=== PATIENT | female | born 1935 | race Caucasian/White ===

== ENCOUNTER 2016-11-20 05:30 | Inpatient (IN) ==
[2016-11-20] MEDS ORDERED: VANCOMYCIN INJ 1,000 MG in SODIUM CHLORIDE 0.9% 250 ML IV ONE (06:00)
--- NOTE | 2016-11-20 07:17 | History and Physical Update ---
History and Physical Update - History and Physical H&P was reviewed, the patient examined and there: are no changes in the patients condition since last H&P was completed.
[2016-11-20] MEDS ORDERED: ceFAZolin 1,000 MG VIAL ONE (07:18)
[2016-11-20] MEDS ORDERED: VANCOMYCIN 1,000 MG VIAL ONE (07:18)
[2016-11-20] MEDS ORDERED: SODIUM CHLORIDE 0.9% 100 ML IV ONE (07:18)
[2016-11-20] MEDS: LACTATED RINGERS 1,000 ML IV SCH ×2 (07:30→16:25)
[2016-11-20] MEDS ORDERED: NALOXONE 0.4 MG/ML VIAL IV PRN (09:18)
[2016-11-20] MEDS ORDERED: HYDROmorphone 2 MG/1 ML VIAL IV PRN (09:18)
[2016-11-20] MEDS ORDERED: TEMAZEPAM 7.5 MG CAPSULE PO PRN (09:18)
[2016-11-20] MEDS ORDERED: PROMETHAZINE 25 MG/1 ML VIAL IM PRN (09:18)
[2016-11-20] MEDS ORDERED: MAGNESIUM HYDROXIDE SUSP 30 ML UDCUP PO PRN (09:18)
[2016-11-20] MEDS ORDERED: ONDANSETRON 4 MG/2 ML VIAL IV PRN (09:18)
[2016-11-20] MEDS ORDERED: diphenhydrAMINE CAP 25 MG CAPSULE PO PRN (09:18)
[2016-11-20] MEDS ORDERED: BISACODYL 10 MG SUPP RECTAL PRN (09:18)
[2016-11-20] MEDS ORDERED: LACTULOSE 20 GM/30 ML UDCUP PO PRN (09:18)
[2016-11-20] MEDS ORDERED: ROPIVACAINE 0.5% 30 ML VIAL ONE (09:35)
[2016-11-20] MEDS ORDERED: TRANEXAMIC ACID 1,000 MG/10 ML VIAL IV ONE (10:58)
--- NOTE | 2016-11-20 12:00 | Anesthesia Post-Op ---
Anesthesia Post OP - Post Ansesthetic Evaluation Patient seen in post op: Yes Resp: within normal limits CV: within normal limits Mental: within normal limits Temp: within normal limits [id number]: within normal limits Nausea and Vomiting: within normal limits Pain: within normal limits
[2016-11-20] MEDS ORDERED: LABETALOL 20 MG/4 ML SYRINGE IV ONE (12:13)
[2016-11-20] MEDS ORDERED: HYDROmorphone 2 MG/1 ML VIAL ONE (12:13)
[2016-11-20] MEDS ORDERED: GLYCOPYRROLATE 0.4 MG/2 ML VIAL ONE (12:14)
[2016-11-20] MEDS ORDERED: MIDAZOLAM 2 MG/2 ML VIAL ONE (12:14)
[2016-11-20] MEDS ORDERED: fentaNYL 100 MCG/2 ML VIAL ONE (12:14)
[2016-11-20] MEDS ORDERED: NEOSTIGMINE 10 MG/10 ML VIAL ONE (12:14)
[2016-11-20] MEDS ORDERED: KETOROLAC 30 MG/1 ML VIAL ONE (12:14)
[2016-11-20] MEDS ORDERED: ROCURONIUM 100 MG/10 ML VIAL IV ONE (12:15)
--- NOTE | 2016-11-20 12:36 | XRay Report ---
XR knee 2V RT Indication: Joint replacement (right knee) Comparison: Right knee x-ray dated December 15, 2014 Technique: Frontal and lateral views of the right knee. Findings: Status post total right knee arthroplasty. No evidence of immediate hardware failure. Superficial skin spencer and surgical drain/s overlie the knee. Subcutaneous and joint space air noted which is likely postoperative. IMPRESSION: Status post total right knee arthroplasty. PROCEDURE INTERPRETED AT [facility] DEPARTMENT OF RADIOLOGY Final Report Signed by: Dr Toni Guevara
[2016-11-20 15:02] LABS: Basophils % 0.2 % (0.0-0.8); Eosinophils % 0.3 % (0.00-10.9); Hematocrit 38.2 VOL% (35.7-47.0); Hemoglobin 12.5 GM/DL (12.0-16.0); Immature Granulocytes % 0.4 %; Immature Granulocytes Absolute 0.05 #; Lymphocytes # 0.9 10*3/uL (1.4-4.0); Lymphocytes % 7.6 % (21.3-54.2); Mean Corpuscular HGB Conc 32.7 GM/DL (32-36); Mean Corpuscular Hemoglobin 30 PG (27-34); Mean Corpuscular Volume 92.3 FL (87-102); Mean Platelet Volume 10.7 FL (9.6-12.0); Monocytes # 0.7 10*3/uL (0.11-0.8); Monocytes % 5.8 % (1.7-12.7); Neutrophils # 10.2 10*3/uL (1.4-7.4); Neutrophils % 85.7 % (38.7-73.9); Platelet Count 195 T/CUMM (130-400); Red Blood Count 4.14 MC/CUMM (3.8-5.5); Red Cell Distribution Width 13.2 % (9.3-17.3); White Blood Count 11.9 T/CUMM (4-12)
[2016-11-20 15:15] LABS: Calcium 8.2 MG/DL (8.5-10.1); Potassium 3.9 MMOL/L (3.5-5.1)
--- NOTE | 2016-11-20 15:58 | Orthopedic Progress Note ---
Orthopedics - Subjective Interval history: Comfortable neurovascular intact good pulse discussed up in a.m. Exam - Constitutional Vitals: Period Temp Pulse Resp BP Sys/Segura Pulse Ox Last 24 Hr 97.7 F-98.1 F 59-79 16-20 114-147/58-86 95-100 Results - Labs CBC & BMP: 11/20/16 14:21 11/20/16 14:21
[2016-11-20] MEDS: HYDROmorphone PCA 30 MG/30 ML SYRINGE IV SCH (16:23)
--- NOTE | 2016-11-20 17:51 | Operative Note ---
DATE: 11/20/2016 PREOPERATIVE DIAGNOSIS: OSTEOARTHRITIS, RIGHT KNEE. POSTOPERATIVE DIAGNOSIS: OSTEOARTHRITIS, RIGHT KNEE. OPERATIVE PROCEDURE: Right total knee ([place]). SURGEON: Akbar Mak Jr., MD. ANESTHESIA: General. INDICATION: A 80-year-old white female with severe osteoarthritis to her right knee. She has maximi zed conservative treatment through the year including previous arthroscopy and injection. She presen ts today for elective right total knee. OPERATIVE PROCEDURE: The patient was taken to the operating room and under general anesthetic, posit ioned in the supine position. The right leg was positioned, prepped and draped in the usual sterile manner. The limb was elevated, exsanguinated, and the tourniquet inflated to 300 mmHg. She received Vancomycin and Ancef preoperatively. A midline incision was made over the anterior aspect of the ri ght knee. Sharp dissection was carried down through skin and subcutaneous tissue. A median parapate llar arthrotomy performed with the knee revealing extensive tricompartmental degenerative changes. I ntramedullary alignment guides were used to make the appropriate cuts about the distal femur and prox imal tibia. The femur was sized to a 5, the tibia also to a 5. A 6 mm fixed bearing spacer selected . The patella was resurfaced with a 35 button. After removal of the trial components, all three com ponents were cemented into place. After the cement hardened, the wound was irrigated and closed over two 1/8-inch Hemovac drains in a standard fashion using #1 Vicryl for the arthrotomy, 2-0 Vicryl for the subcutaneous layer, and spencer for skin. Tourniquet was deflated during wound closure at 42 mi nutes and she was transported to recovery room in stable condition. CC:
[2016-11-20] MEDS: FONDAPARINUX 2.5 MG/0.5 ML SYRINGE SUBCUT SCH (20:34)
[2016-11-20] MEDS: DOCUSATE SODIUM 100 MG CAPSULE PO SCH (20:34)
[2016-11-21 06:51] LABS: Basophils % 0.1 % (0.0-0.8); Hematocrit 33.5 VOL% (35.7-47.0); Hemoglobin 11.4 GM/DL (12.0-16.0); Immature Granulocytes % 0.4 %; Immature Granulocytes Absolute 0.04 #; Lymphocytes # 0.8 10*3/uL (1.4-4.0); Lymphocytes % 7.8 % (21.3-54.2); Mean Corpuscular Hemoglobin 31 PG (27-34); Mean Corpuscular Volume 89.6 FL (87-102); Monocytes # 1.2 10*3/uL (0.11-0.8); Monocytes % 12.1 % (1.7-12.7); Neutrophils # 7.9 10*3/uL (1.4-7.4); Neutrophils % 79.6 % (38.7-73.9); Platelet Count 161 T/CUMM (130-400); Red Blood Count 3.74 MC/CUMM (3.8-5.5); Red Cell Distribution Width 13.2 % (9.3-17.3)
[2016-11-21 07:28] LABS: Calcium 8.2 MG/DL (8.5-10.1); Osmolality,Calculated 280.3 MOS/KG (273-304); Potassium 3.7 MMOL/L (3.5-5.1)
--- NOTE | 2016-11-21 07:35 | Orthopedic Progress Note ---
Orthopedics - Subjective Interval history: Hemoglobin 11 neurovascular intact drain is removed ready to start PT Exam - Constitutional Vitals: Period Temp Pulse Resp BP Sys/Segura Pulse Ox Last 24 Hr 96.6 F-99.3 F 59-98 16-20 114-147/54-86 94-100 Results - Labs CBC & BMP: 11/21/16 06:12 11/21/16 06:12
--- NOTE | 2016-11-21 08:30 | Orthopedic Progress Note ---
Orthopedics - Subjective Interval history: Comfortable neurovascular intact drain removed ready for PT. Exam - Constitutional Vitals: Period Temp Pulse Resp BP Sys/Segura Pulse Ox Last 24 Hr 96.6 F-99.3 F 59-98 16-20 114-147/54-86 94-100 Results - Labs CBC & BMP: 11/21/16 06:12 11/21/16 06:12
[2016-11-21] MEDS: DOCUSATE SODIUM 100 MG CAPSULE PO SCH ×2 (08:31→20:03)
--- NOTE | 2016-11-21 10:44 | Pulmonology Progress Note ---
Pulmonary - PN: Subj Interval history: This is a 80-year-old white female who is postop right total knee replacement. She was seen along with her . So far everything has gone well. Her main problems have been osteoarthritis, osteopenia for which she takes Fosamax, chronic low back pain secondary to multilevel degenerative disc disease and scoliosis. She also has decreased hearing acuity H&H is stable 11.4/33.5. Physical exam. Vital signs. See below Psychiatric. Oriented 3 Neurologic. Cranial nerves are intact with decreased hearing acuity bilaterally. Patient moves all 4 extremities. Face. Symmetrical. No edema of the lips or tongue Neck. Symmetrical. Kyphotic. No meningismus. Chest. Breath sounds are clear. No wheezes. No rales. Heart. Regular. No gallop Abdomen. Positive bowel sounds. Nontender. Extremities. No evidence of deep venous thrombophlebitis. As per orthopedics The remainder of the physical exam is negative. Plan. 1. Continue home medicines 2. Continue present regimen Exam (Progress Note) - Constitutional Vitals: Period Temp Pulse Resp BP Sys/Segura Pulse Ox Last 24 Hr 96.6 F-99.3 F 59-98 16-20 114-147/54-86 94-100 Results - Labs CBC & BMP: 11/21/16 06:12 11/21/16 06:12
--- NOTE | 2016-11-21 12:26 | Pathology Report from [facility] ---
[facility] ACCESSION # : [id number] PATIENT NAME : Abiodun Franklin ORDERING DR : KALPESH SHAW JR, MD CLINICAL HX: Right knee osteoarthritis POST-OP DX: Same SPECIMEN INFO: Right knee bone and tissue GROSS DESCRIPTION: The specimen is received in formalin labeled with the patients name and consists of multiple fragments of bone, cartilage and some soft tissue measuring in aggregate 11.5 x 11.1 cm. The articular surfaces are focally degenerative with areas of some subchondral eburnation present measuring up to 3.0 cm with areas of osteophyte formation noted. Donation Specialist tissue submitted in one cassette. DIAGNOSIS FOR ABIODUN FRANKLIN: RIGHT KNEE BONE & TISSUE, TOTAL REPLACEMENT: Osteoarthritis. COLLECTED DATE: 11/20/2016 [facility] REPORT DATE: 11/21/2016 ELECTRONICALLY SIGNED BY: Nathan Carvajal M.D. 11/21/2016 - 9:50:46 [facility]
[2016-11-21] MEDS: HYDROmorphone PCA 30 MG/30 ML SYRINGE IV SCH (12:57)
[2016-11-21] MEDS: FONDAPARINUX 2.5 MG/0.5 ML SYRINGE SUBCUT SCH (20:03)
[2016-11-21] MEDS: LACTATED RINGERS 1,000 ML IV SCH (22:47)
[2016-11-22 05:41] LABS: Basophils % 0.2 % (0.0-0.8); Eosinophils % 0.1 % (0.00-10.9); Hematocrit 32.3 VOL% (35.7-47.0); Immature Granulocytes % 0.5 %; Immature Granulocytes Absolute 0.05 #; Lymphocytes # 0.9 10*3/uL (1.4-4.0); Lymphocytes % 8.5 % (21.3-54.2); Mean Corpuscular HGB Conc 34.1 GM/DL (32-36); Mean Corpuscular Hemoglobin 30 PG (27-34); Mean Platelet Volume 10.9 FL (9.6-12.0); Monocytes # 1.4 10*3/uL (0.11-0.8); Monocytes % 13.1 % (1.7-12.7); Neutrophils # 8.2 10*3/uL (1.4-7.4); Neutrophils % 77.6 % (38.7-73.9); Platelet Count 147 T/CUMM (130-400); Red Blood Count 3.63 MC/CUMM (3.8-5.5); Red Cell Distribution Width 12.8 % (9.3-17.3); White Blood Count 10.6 T/CUMM (4-12)
[2016-11-22 06:18] LABS: Band Neutrophils 1 % (0-10); Hypochromasia 1+; Lymphocytes 10 % (20-55); Platelet Estimate Decreased; Polychromasia Slight; Segmented Neutrophils 82 % (50-85); Total Cells Counted 100
[2016-11-22] MEDS: DOCUSATE SODIUM 100 MG CAPSULE PO SCH ×2 (09:39→20:43)
--- NOTE | 2016-11-22 10:02 | Orthopedic Progress Note ---
Orthopedics - Subjective Interval history: Comfortable H&H stable up in chair. Discussed continue with rehab per total knee protocol likely to swing bed or rehab tomorrow Exam - Constitutional Vitals: Period Temp Pulse Resp BP Sys/Sgeura Pulse Ox Last 24 Hr 98.0 F-993 F 81-105 18-20 132-169/55-74 93-99 Results - Labs CBC & BMP: 11/22/16 05:09 11/21/16 06:12
--- NOTE | 2016-11-22 10:05 | Discharge Summary ---
Hospital Course - Hospital Course Hospital Course: Admitted for elective right total knee uncomplicated course discharged to rehab/ swing bed Diagnosis - Discharge Diagnosis (1) Osteoarthritis of right knee Status: Acute Discharge Plan - Discharge Data Disposition: Swing Bed, [facility], [facility] Condition at Discharge: Stable Discharge Diet: advance to your usual diet Activity: ambulate only with your walker, as per physical therapy, increase activity as tolerated Hygiene: may shower, keep area(s) dry Weight Bearing at Discharge: weight bear as tolerated - Discharge Medications New Fondaparinux [Arixtra] 2.5 mg SUBCUT Q24H syringe HYDROcodone/ACETAMIN 7.5-325 [Marshall 7.5-325] 1 tablet PO Q4H PRN #25 tablet PRN Reason: Pain Moderate (4-7) Continue traMADol TAB [Ultram] 50 mg PO DAILY PRN PRN Reason: Pain - Follow Up or Referral - Forms/Instructions Additional Discharge Instructions: Discharge to swing bed/rehab continue home medications Marshall as needed for pain Arixtra 10 days and aspirin once a day spencer can be removed and wound Steri-Stripped December 03. Follow-up with me in approximate 4 weeks Exam - Constitutional Vitals: Period Temp Pulse Resp BP Sys/Segura Pulse Ox Last 24 Hr 98.0 F-993 F 81-105 18-20 132-169/55-74 93-99 Discharge Results Labs on day of discharge: Labs from last 24 hours 11/22/16 05:09 WBC 10.6 RBC 3.63 L Hgb 11.0 L Hct 32.3 L MCV 89.0 MCH 30 MCHC 34.1 RDW 12.8 Plt Count 147 MPV 10.9 Neut % (Auto) 77.6 H Lymph % (Auto) 8.5 L [place] % (Auto) 13.1 H Eos % (Auto) 0.1 Baso % (Auto) 0.2 Neut # (Auto) 8.2 H Lymph # (Auto) 0.9 L [place] # (Auto) 1.4 H Eos # (Auto) 0.0 Baso # (Auto) 0.0 Total Counted 100 Immature Gran % 0.5 Nucleated RBC % 0.0 Immature Gran # 0.05 Segmented Neutrophils 82 Band Neutrophils 1 Lymphocytes 10 L Monocytes 7 Nucleated RBCs # 0.00 Platelet Estimate Decreased Immature Plt Fraction 0.0 Polychromasia Slight Hypochromasia 1+ DS: Provider Date of admission: 11/20/16 09:18 Primary care physician: . No PCP Attending physician on admission: Akbar Mak Jr., MD Consults: 11/20/16 09:18 Consult to Case Mgmt/Social Srvs [CONS] Routine Reason for Case Mgmt/Social Srvs: Rehab Home Health Equipment Consult Comment: Bedside Commode, CPM, Walker Consult to Occupational Therapy [CONS] Routine Reason for Occupational Therapy: Evaluate and Treat Consult Comment: ADL's Consult to Physical Therapy [CONS] Routine Reason for Physical Therapy: Evaluate and Treat Gait Training Consult Comment: wbat 11/20/16 09:20 Consult to Physician [CONS] Routine Comment: Consulting Provider: Billy Christy Consulting Provider Notified: Yes When should Consulting Provider be notified: Now Person Notified: keturah acevedo Date Notified: 11/20/16 Time Notified: 12:51 11/20/16 14:03 Consult to Pastoral Services [CONS] Routine Comment: Pastoral Screen: Request Appeals Writer Visit Pastoral Screen Source of Request: Family Discharging clinician: Akbar Mak Jr., MD
--- NOTE | 2016-11-22 11:01 | Pulmonology Progress Note ---
Pulmonary - PN: Subj Interval history: This is a 80-year-old white female who is postop right total knee replacement. She was seen along with her . So far everything has gone well. Her main problems have been osteoarthritis, osteopenia for which she takes Fosamax, chronic low back pain secondary to multilevel degenerative disc disease and scoliosis. She also has decreased hearing acuity H&H is stable 11.4/33.5. 11/22/2016. Patient seen during physical therapy she is doing well. She has no new complaints. H&H is stable 11.0/32.3. Physical exam. Vital signs. See below Psychiatric. Oriented 3 Neurologic. Cranial nerves are intact with decreased hearing acuity bilaterally. Patient moves all 4 extremities. Face. Symmetrical. No edema of the lips or tongue Neck. Symmetrical. Kyphotic. No meningismus. Chest. Breath sounds are clear. No wheezes. No rales. Heart. Regular. No gallop Abdomen. Positive bowel sounds. Nontender. Extremities. No evidence of deep venous thrombophlebitis. As per orthopedics The remainder of the physical exam is negative. Plan. 11/21/2016 1. Continue home medicines 2. Continue present regimen 11/22/2016. 1. No changes made 2. Continue present Exam (Progress Note) - Constitutional Vitals: Period Temp Pulse Resp BP Sys/Segura Pulse Ox Last 24 Hr 98.0 F-993 F 81-105 18-20 132-169/55-74 93-99 Results - Labs CBC & BMP: 11/22/16 05:09 11/21/16 06:12
[2016-11-22] MEDS: LACTATED RINGERS 1,000 ML IV SCH (19:04)
[2016-11-22] MEDS: FONDAPARINUX 2.5 MG/0.5 ML SYRINGE SUBCUT SCH (20:43)
--- NOTE | 2016-11-23 07:49 | Orthopedic Progress Note ---
Assessment and Plan (1) Osteoarthritis of right knee Status: Acute Current Visit: Yes Orthopedics - Subjective Interval history: No problems comfortable ready for discharge to swing bed Exam - Constitutional Vitals: Period Temp Pulse Resp BP Sys/Segura Pulse Ox Last 24 Hr 97.2 F-99.1 F 82-100 18-20 131-164/58-83 92-95 Results - Labs CBC & BMP: 11/22/16 05:09 11/21/16 06:12
--- NOTE | 2016-11-23 11:02 | Pulmonology Progress Note ---
Pulmonary - PN: Subj Interval history: This is a 80-year-old white female who is postop right total knee replacement. She was seen along with her . So far everything has gone well. Her main problems have been osteoarthritis, osteopenia for which she takes Fosamax, chronic low back pain secondary to multilevel degenerative disc disease and scoliosis. She also has decreased hearing acuity H&H is stable 11.4/33.5. 11/22/2016. Patient seen during physical therapy she is doing well. She has no new complaints. H&H is stable 11.0/32.3. 11/23/2016. This patient is stable today and plans are for discharge. I will sign off. Physical exam. Vital signs. See below Psychiatric. Oriented 3 Neurologic. Cranial nerves are intact with decreased hearing acuity bilaterally. Patient moves all 4 extremities. Face. Symmetrical. No edema of the lips or tongue Neck. Symmetrical. Kyphotic. No meningismus. Chest. Breath sounds are clear. No wheezes. No rales. Heart. Regular. No gallop Abdomen. Positive bowel sounds. Nontender. Extremities. No evidence of deep venous thrombophlebitis. As per orthopedics The remainder of the physical exam is negative. Plan. 11/21/2016 1. Continue home medicines 2. Continue present regimen 11/22/2016. 1. No changes made 2. Continue present 11/23/2016. 1. Agree with plans. 2. We will sign off. Reconsult when needed. Exam (Progress Note) - Constitutional Vitals: Period Temp Pulse Resp BP Sys/Segura Pulse Ox Last 24 Hr 97.2 F-99.1 F 82-100 18-20 131-164/58-83 92-95 Results - Labs CBC & BMP: 11/22/16 05:09 11/21/16 06:12 Specialty Discharge - Follow Up or Referrals Follow up with: Akbar Mak Jr., MD [Physician] - 12/21/16 9:10 am Billy Christy MD [Physician] - (call as needed)
[2016-11-23 11:17] VITALS: BP 144/68
[2016-11-23] MEDS: DOCUSATE SODIUM 100 MG CAPSULE PO SCH (11:44)
== END 2016-11-23 13:10 | disposition swing bed (61) | DRG 470 ==
LOC: N.OR 05:30 → N.SDSINP 05:31 → N.3E 09:18
PROVIDERS: ADMIT Orthopaedic Surgery; ATTEND Orthopaedic Surgery